=== PATIENT | female | born 1980 ===

== ENCOUNTER 2019-07-19 08:27 | Outpatient (CLI) | payer OTHER ==
--- NOTE | 2019-07-20 07:29 | ULT ---
TRANSABDOMINAL TRANSVAGINAL PELVIC ULTRASOUND DATE:: 07/19/2019 12:00 AM CLINICAL HISTORY: Menorrhagia. Irregular cycle COMPARISON: None. TECHNIQUE: Grayscale and color Doppler images were obtained of the pelvis see a transabdominal transv aginal approach Uterus: Size: 9.1 x 5.3 x 3.7 cm. Total uterine volume of 93.26 cc. Mass: None Cervix: Multiple nabothian cysts Endometrium: Normal Endometrial Thickness: 6.2 mm Ovaries: Adnexa are not seen Cul-de-sac: No free fluid IMPRESSION: No acute sonographic abnormality demonstrated. Adnexa not seen due to overlying bowel gas.
== END 2019-07-19 08:28 | disposition home or self-care (01) ==
LOC: BICULT 08:27
PROVIDERS: ATTEND Family Medicine
DX: N92.1 Excessive and frequent menstruation with irregular cycle (principal); N94.6 Dysmenorrhea, unspecified
CPT/HCPCS: 76856; 93976